=== PATIENT | female | born 1960 | race Caucasian/White ===

== ENCOUNTER → 2019-10-17 | Outpatient (CLI) | payer OTHER ==
--- NOTE | 2019-10-17 16:38 | KCIC ---
MR of the right shoulder HISTORY: Right shoulder pain, progressively worse since July. TECHNIQUE: Routine multiplanar sequences are obtained. FINDINGS: The acromioclavicular joint is mildly degenerative with undersurface hypertrophy. Linear fluid defect across the supraspinatus tendon footprint. This demonstrates extension to the bursal surface and articular surface, best seen on a single coronal slice, series 6, image 10. No retraction. This tear in total measures 10 mm AP diameter. Generalized rotator cuff tendinosis. No measurable subscapularis tendon tear. Trace subdeltoid bursal fluid. No advanced muscle atrophy. No significant glenohumeral joint effusion. Mild signal within the posterosuperior labrum through posteroinferior labrum with mild distortion compatible with degenerative tearing. The biceps tendon is intact. No acute fracture. No aggressive bone destruction. No acute soft tissue abnormality. IMPRESSION: 1. Small linear full-thickness nonretracted rotator cuff tear of the anterior supraspinatus tendon. 2. Posterosuperior through posteroinferior labral tear. Electronically signed by: Earle Fuchs MD (10/17/2019 4:35 PM) [email or web address]
== END | disposition home or self-care (01) ==
LOC: KCIC MRI 15:29
PROVIDERS: ATTEND Physician Assistant Medical
DX: S43.491A Other sprain of right shoulder joint, initial encounter (principal); M75.121 Complete rotator cuff tear or rupture of right shoulder, not specified as traumatic; M19.011 Primary osteoarthritis, right shoulder; X58.XXXA Exposure to other specified factors, initial encounter; Y93.89 Activity, other specified; Y92.89 Other specified places as the place of occurrence of the external cause; Y99.8 Other external cause status
CPT/HCPCS: 73221

== ENCOUNTER → 2020-02-23 | Outpatient (CLI) | payer OTHER ==
[~2020-02-23] MED LIST: ALPR0.25 PO; LOSA100T14 PO; OXYC1TAB19 PO; SERT100T PO; TRAM50TA PO
--- NOTE | 2020-02-23 09:40 | EKG ---
[facility] [address] [place] [address] Test Date: 2020-02-23 Test Time: 09:38:48 Pat Name: DARRYL ANDREWS Department: Room: Gender: F Trauma Counsellor: ANA : 1960 Requested By: DEJAH FULLER Order Number: [id number] Reading MD: Alexis Hameed Measurements Intervals [place] Rate: 62 P: 156 PA: 170 QRS: 147 QRSD: 80 T: 172 QT: 386 QTc: 394 Interpretive Statements SINUS RHYTHM ABNORMAL RIGHT AXIS DEVIATION NONSPECIFIC ST-T WAVE CHANGES. Electronically Signed On 02-26-2020 16:38:24 CDT by Alexis Hameed
[2020-02-23 09:45] LABS: BASO % 1 % (0-3); EOS # 0.1 x10^3/uL (0.0-0.7); EOS % 2 % (0-3); HEMATOCRIT 39.7 % (36.0-47.0); HEMOGLOBIN 13.1 g/dL (12.0-15.5); LYMPH # 1.2 x10^3/uL (1.0-4.8); LYMPH % 21 % (24-48); MEAN CORPUSCULAR HEMOGLOBIN 28 pg (25-35); MEAN CORPUSCULAR HGB CONC 33 g/dL (31-37); MEAN CORPUSCULAR VOLUME 84 fL (79-100); MONO # 0.4 x10^3/uL (0.0-1.1); MONO % 7 % (0-9); NEUT # 3.9 x10^3/uL (1.8-7.7); NEUT % 69 % (31-73); PLATELET COUNT 235 x10^3/uL (140-400); RED BLOOD COUNT 4.74 x10^6/uL (3.50-5.40); RED CELL DISTRIBUTION WIDTH 13.9 % (11.5-14.5); WHITE BLOOD COUNT 5.6 x10^3/uL (4.0-11.0)
[2020-02-23 10:06] LABS: ALBUMIN 3.8 g/dL (3.4-5.0); ALBUMIN/GLOBULIN RATIO 1.3 (1.0-1.7); CALCIUM 8.9 mg/dL (8.5-10.1); CREATININE 0.8 mg/dL (0.6-1.0); GFR 73.9; POTASSIUM 4.6 mmol/L (3.5-5.1); TOTAL BILIRUBIN 0.3 mg/dL (0.2-1.0); TOTAL PROTEIN 6.8 g/dL (6.4-8.2)
== END ==
LOC: SURGPAT 08:36
PROVIDERS: ATTEND Orthopaedic Surgery
DX: Z01.818 Encounter for other preprocedural examination (principal); Z11.59 Encounter for screening for other viral diseases; R94.31 Abnormal electrocardiogram [ECG] [EKG]
CPT/HCPCS: 36415; 80053; 85025; 93005; U0003

== ENCOUNTER 2020-02-27 08:25 | Day surgery (SDC) | payer OTHER ==
[~2020-02-27] VITALS: Ht 170.2 cm; Wt 123.0 kg
[~2020-02-27 08:25] MED LIST changes: +HYDROmorphone 2 MG/ML VIAL IV PRN; +IV RINGERS,LACTATED 1000ML 1,000 ML IV SCH; +LIDOCAINE 1% PF 2 ML VIAL. ID PRN; +MORPHINE SULFATE 2 MG/ML VIAL. IV PRN; +ONDANSETRON PF 4 MG/2 ML VIAL. IV PRN; -OXYC1TAB19 PO; +PROCHLORPERAZINE 10 MG/2 ML VIAL. IV PRN; +ceFAZolin SODIUM 3 GM in IV DEXTROSE 5% 100ML 100 ML IV PRN; +fentaNYL PF VIAL 100 MCG/2 ML VIAL IV PRN
[2020-02-27] MEDS ORDERED: MIDAZOLAM HCL/PF 2 MG/2 ML VIAL. ONE (09:00)
[2020-02-27] MEDS ORDERED: ROPIVacaine 0.5% PF 20 ML VIAL. ONE (09:00)
[2020-02-27] MEDS ORDERED: ONDANSETRON PF 4 MG/2 ML VIAL. ONE (09:15)
[2020-02-27] MEDS ORDERED: DEXAMETHASONE SOD PHOS 4 MG/ML VIAL ONE (09:15)
[2020-02-27] MEDS ORDERED: PROPOFOL 10 MG/ML (20ML) VIAL. IV ONE (09:15)
[2020-02-27] MEDS ORDERED: LIDOCAINE 2% PF 5 ML VIAL. ONE (09:15)
[2020-02-27] MEDS ORDERED: GLYCOPYRROLATE 1 MG/5 ML VIAL. ONE (09:17)
[2020-02-27] MEDS ORDERED: NEOSTIGMINE METHYLSULFATE 5 MG/5 ML SYRINGE. ONE (09:17)
[2020-02-27] MEDS ORDERED: ROCURONIUM 50 MG/5 ML VIAL. ONE (09:17)
[2020-02-27] MEDS ORDERED: EPINEPHrine VIAL 30 MG/30 ML VIAL ONE (10:41)
[2020-02-27] MEDS ORDERED: PHENYLEPHRINE 10 MG/ML VIAL. ONE (11:36)
[2020-02-27] MEDS ORDERED: ePHEDrine PF IN SALINE 50 MG/10 ML SYRINGE. IV ONE (11:36)
[2020-02-27] MEDS: fentaNYL PF VIAL 100 MCG/2 ML VIAL IV PRN ×4 (13:10→14:01)
[2020-02-27] MEDS ORDERED: oxyCODONE/APAP 7.5/325 1 TAB TABLET PO PRN (13:15)
--- NOTE | 2020-02-27 13:32 | PDOC4 ---
Operative Note Operative Note Date of surgery: 02/27/2020 Preoperative diagnosis: Rotator cuff tear left shoulder and subacromial impingement Postoperative diagnosis: Partial thickness bursal sided fraying of supraspinatus impingement and superior labral tear Operative procedure: Right shoulder arthroscopy debridement of rotator cuff and labrum and subacromial decompression Surgeon: Alejo Peanut Cleaner: Rufino Escalante nurse practitioner Anesthesia General plus interscalene block Estimated blood loss: 10 cc Complications: None Operative indications: Please see my orthopedic clinic note for detailed operative indications and note that we had covered the possibility of rotator cuff repair and discussed addressing any other pathological conditions. We discussed the possibility of infection nerve or blood vessel damage nonhealing continued pain medical or other anesthetic complications and the long recovery process and rationale for restriction and physical therapy. All her questions were answered she wishes to proceed with surgical evaluation and treatment having given informed consent Operative text: Patient was identified procedure verified patient placed in the supine position and after adequate amounts of general anesthesia plus a pre- existing scalene block were obtained she was placed in the T-Max headrest and semi-beachchair position the left shoulder was prepped and draped in standard sterile fashion and after timeout was performed patient procedure identified and verified she was placed in the spider arm kramer a standard posterior portal was established anterior portal established using spinal needle localization and the shoulder joint was systematically examined. She was noted to have superior labral fraying throughout which was debrided back to stable tissue using an arthroscopic shaver and electrocautery. She was noted to have intact joint sided insertion of the subscapularis, supraspinatus and infraspinatus. Subacromial space was then entered bursa was cleared for visualization the rotator cuff debrided back to stable tissue and the rotator cuff examined in all degrees of internal/external rotation and not found to need any repair. Subacromial decompression was then carried out to remove the anterior acromial spur back to a type I acromion using cutting block technique. The joint was drained of arthroscopic fluid portals closed with nylon suture sterile dressings were applied she was placed in an immobilizer and returned to recovery room in stable condition having tolerated procedure well. Rufino Escalante nurse practitioner was present for the procedure and assisted in the patient positioning prepping draping manipulation during the procedure and closure and dressings DEJAH FULLER MD Feb 27, 2020 13:32
[2020-02-27] MEDS ORDERED: OXYC1TAB19 PO (13:35)
--- NOTE | 2020-02-27 13:37 | DISCH ---
DISCHARGE INSTRUCTIONS Condition on Discharge Condition on Discharge: Stable Activity After Discharge Activity Instructions for Disc: Other, see below (Sling for comfort, may ad chávez to active and passive range of motion as symptomatically tolerated) Diet after Discharge Diet after Discharge: Regular Wound Incision Care Wound/Incision Care: Ice to area for comfort, Change dressing (Remove dressing in 2 days may then shower Band-Aids over incision) Community/Resources/Services Services at Discharge: PT EVALUATE & TREAT (Prescription written for physical therapy for passive active range of motion advancing to strengthening as tolerated, may start KOKI) Contacting the after DC Call your doctor for: Concerns you may have Follow-Up Follow up with: Dr. Dhillon 7 to 10 days DEJAH DHILLON MD Feb 27, 2020 13:37
[2020-02-27] MEDS ORDERED: fentaNYL PF VIAL 100 MCG/2 ML VIAL ONE (13:40)
[2020-02-27 14:17] VITALS: BP 145/86
== END 2020-02-27 14:30 ==
LOC: SURG 08:25
PROVIDERS: ATTEND Orthopaedic Surgery
DX: M75.112 Incomplete rotator cuff tear or rupture of left shoulder, not specified as traumatic (principal); M75.42 Impingement syndrome of left shoulder; M24.112 Other articular cartilage disorders, left shoulder; I10 Essential (primary) hypertension; G47.30 Sleep apnea, unspecified; K21.9 Gastro-esophageal reflux disease without esophagitis; F32.9 Major depressive disorder, single episode, unspecified; F41.9 Anxiety disorder, unspecified; E66.01 Morbid (severe) obesity due to excess calories; Z68.41 Body mass index [BMI] 40.0-44.9, adult; Z87.891 Personal history of nicotine dependence; Z87.442 Personal history of urinary calculi; Z90.710 Acquired absence of both cervix and uterus; Z90.721 Acquired absence of ovaries, unilateral; Z72.89 Other problems related to lifestyle
CPT/HCPCS: 29823; 29826; 64415; A7015; C1713; J0171; J1100; J2250; J2370; J2405; J2704; J2710; J2795; J3010; J3490; J7120; A4565